=== PATIENT | male | born 1960 | race Caucasian/White ===

== ENCOUNTER 2024-03-06 08:31 | Inpatient (IN) | payer MEDICARE, MEDICAID, SELFPAY ==
--- NOTE | ~2024-03-06 | CT_ITS ---
EXAMINATION: CT head/brain wo IV con CLINICAL INFORMATION: Patient with known vestibular schwannoma. MRI of brain on 01/10/2023 showed 3.4 x 3.4 x 2.5 cm heterogenous lesion within the left CP angle extending to the right IAC. COMPARISON: None. At the time of dictation, the referenced MRI brain is unavailable for comparison. TECHNIQUE: Contiguous axial imaging was performed from the skull base to vertex without intravenous contrast. This CT examination was performed using dose optimization techniques as appropriate, variously including the following: * Automated exposure control * Adjustment of mA and/or kV according to patient size (this includes techniques or standardized protocols for targeted exams where dose is matched to indication/reason for exam; i.e. extremities or head) * Use of iterative reconstruction technique DLP: 719 mGy-cm. FINDINGS: There is a heterogeneous density 3.7 x 3.4 x 2.8 cm lesion in the right cerebellopontine angle (series #2 axial image 21 and coronal image 118). There is surrounding edema with mass effect on the [place] and partial effacement of fourth ventricle. There is no evidence of acute intracranial hemorrhage or territorial infarction. Garcia to white matter differentiation is well preserved. No midline shift is seen. No extra-axial fluid collections are identified. No hydrocephalus. No significant volume loss. There is no abnormal attenuation within the brain parenchyma. The cerebellar tonsils are well positioned. No acute osseous or soft tissue abnormality. Visualized portions of the orbits are unremarkable. The mastoid air cells and visualized portions of the paranasal sinuses are well aerated. CT/CT head/brain wo IV con IMPRESSION: 1. There is a heterogeneous density 3.7 cm lesion in the right cerebellopontine angle with surrounding edema resulting in mass effect on the [place]er[place] and partial effacement of fourth ventricle. 2. No acute intracranial hemorrhage or territorial infarction.
--- NOTE | ~2024-03-06 | MR_ITS ---
EXAMINATION: MR BRAIN WITH AND WITHOUT CONTRAST CLINICAL INFORMATION: Cerebellopontine angle tumor, evaluate edema/compression COMPARISON: CT head 03/06/2024, outside MR brain 01/10/2023 TECHNIQUE: MRI of the brain was obtained using routine sequences before and following administration of intravenous contrast. A total of 7 mL of Gadavist was administered intravenously. FINDINGS: Multiple sequences are motion degraded. There is a mixed solid and cystic mass with internal susceptibility artifact located along the right cerebellopontine angle measuring up to 4.2 x 4.4 x 3.0 cm. This lesion extends into the right internal auditory canal with mild widening of the porus acousticus. There is locoregional mass effect with compression of the right cerebellar hemisphere, right brachium pontis, and right [place]er[place]. Underlying edema in the right brachium pontis and right cerebellar hemisphere is noted. There is distortion of the fourth ventricle without evidence of acute hydrocephalus. This lesion effaces the cisternal segment of the right trigeminal nerve and is in close approximation to the right vertebral artery and tortuous left vertebral artery which course along its undersurface. Overall, this appears comparable in size to the prior outside examination when allowing for differences in technique. No acute infarction. No midline shift. Generalized cerebral volume loss with associated ventricular and sulcal prominence. Intracranial flow voids are preserved. Scattered periventricular and subcortical T2/FLAIR hyperintense foci are nonspecific but likely represent chronic microvascular ischemic change. No additional areas of abnormal enhancement are seen within the constraint of motion degradation. The paranasal sinuses and mastoid air cells are well-aerated. No expansile or destructive osseous lesion. Degenerative changes of the temporomandibular joints. MR/MR head/brain wo/w con IMPRESSION: Large solid and cystic mass centered along the right cerebellopontine angle likely represents a vestibular schwannoma. Associated mass effect, as described above, with edema in the right brachium pontis and right cerebellar hemisphere.
--- NOTE | ~2024-03-06 | XR_ITS ---
EXAMINATION: XR chest 1V CLINICAL INFORMATION: Reason for Exam alter mentation COMPARISON: None TECHNIQUE: Single portable frontal view. Tubes and lines: None Lungs and pleura: Mild diffuse interstitial opacification might be interstitial pneumonitis or interstitial lung disease. No large effusions, right costophrenic angle is excluded from the [id number]. Left costophrenic angle is sharp. Heart and mediastinum: The mediastinum is within normal limits.. Bones/soft tissue: Skeletal structures included are normal for patient's age. XR/XR chest 1V IMPRESSION: * Mild diffuse interstitial opacification might be mild interstitial pneumonitis or interstitial lung disease. * No large effusions.
--- NOTE | 2024-03-06 08:41 | ECG_ITS ---
Test Reason : MENTAL STATUS CHANGE Blood Pressure : / mmHG Vent. Rate : 078 BPM Atrial Rate : 078 BPM P-R Int : 180 ms QRS Dur : 084 ms QT Int : 364 ms P-R-T Axes : 060 073 064 degrees QTc Int : 414 ms Normal sinus rhythm Normal ECG No previous ECGs available Referred By: Daniel Stack Electronically Signed By:ISABELLA CANAS
[2024-03-06 08:42] VITALS: BP 111/68; BP 99/56; PULSE 68; PULSE 72; RESP 15; TEMP 36.3; BMI 23.7
--- NOTE | 2024-03-06 08:44 | ED.GENADULT ---
HPI - General Adult General Chief complaint: Recheck/Abnormal Lab/Rx Stated complaint: AMS THIS AM,@BASELINE PER EMS Time Seen by Provider: 03/06/24 08:40 Source: family ( Caregiver) and EMS Mode of arrival: EMS Limitations: other ( cognitive disorder) History of Present Illness ED Provider: DR. Stack HPI narrative: Prieto is a 63-year-old male with past medical history significant for intellectual disability and cognitive disorder came in with his caregiver for evaluation and concern of change mental status. 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 In the emergency department patient is awake was intact neuro exam with out weakness or numbness. Blood sugar in the emergency department is 118. Related Data Allergies Allergy/AdvReac Type Severity Reaction Status Date / Time No Known Allergies Allergy Verified 03/06/24 08:57 Review of Systems Review of Systems: Yes Unobtainable due to mental status ( due to cognitive disorder) PMFSH Social History Social History Advance Directives: No Advance Directives Information Provided: No Physical Exam ED Vital Signs: Vital Signs - 24 hr 03/06/24 08:42 03/06/24 10:00 Temperature 97.4 F 97.8 F Pulse Rate 68 69 Respiratory Rate 15 17 Blood Pressure 99/56 L 111/70 Pulse Oximetry 96 Oxygen Delivery Method Room Air Room Air BMI result Body Mass Index 23.7 Vital signs have been reviewed and appear to be correct. Blood pressure elevated. Heart rate normal. Respiratory rate normal. Temperature normal. Oxygen saturation normal. Appearance: Alert. inter acting with staff appropriately,Oriented X2 (person and place which is normal for the patient ). No acute distress. Head: Normal external exam. Normocephalic. Atraumatic. No Freitas signs noted. No raccoon eyes noted Eyes: PERRLA. EOMI. Conjunctiva and sclera normal. Eyelids normal. ENT: TM's Normal. Pharynx normal. Uvula midline. Moist mucous membranes. No trismus noted. No drooling noted. No muffled voice noted. Neck: Normal inspection. Neck supple. FROM. No adenopathy. Thyroid Normal. No meningeal signs. No neck mass noted. CVS: Normal heart rate and rhythm. Heart sound normal. No murmurs noted. Pulses normal throughout. Respiratory: No respiratory distress. Painless inspiration. Breath sounds normal. No wheezes/rales/rhonchi noted. Chest nontender. No accessory muscle usage noted or decreased air movement noted. Abdomen: Soft and nontender. Bowel sounds normal in all 4 quadrants. No distention noted. No organomegaly noted. No visible injury noted. Back: No CVA tenderness. Full range of motion noted. Skin: Skin warm and dry. Normal skin color. Normal skin turgor. No rashes/lesions/lacerations noted. Extremities: No lower extremity edema. Extremities exhibit normal range of motion. Extremities nontender. Neuro: Cranial nerve exam: II-XII are grossly intact No motor deficit. No sensory deficit. Reflexes normal. Course Reevaluation(s) Reevaluation #1: 63-year-old male came in after had 1 syncopal episode at home witnessed by his caregiver, patient will need to be monitored in the hospital for syncopal episode. Time: 11:10 Medications Administered Discontinued Medications Generic Name Dose Route Start Last Admin Trade Name Freq PRN Reason Stop Dose Admin Sodium Chloride 1,000 mls @ 999 mls/hr 03/06/24 08:40 03/06/24 09:09 Ns IV 03/06/24 09:40 999 mls/hr .Q1H1M ONE Administration Medical Decision Making Differential Diagnosis Differential Diagnoses: The differential diagnosis associated with the presentation includes ( Dehydration, electrolyte derangement, ACS, dysrhythmia, severe anemia, pneumonia, pneumothorax Upper respiratory viral infections.) Admission/Observation Consideration of admission/observation: Escalation of care including admission/observation considered Lab Data MDM Lab Attestation statement: I reviewed the patient's lab results. 03/06/24 09:06 03/06/24 09:06 Labs: Lab Results 03/06/24 03/06/24 Range/Units 08:44 09:06 WBC 10.1 (4.8-10.8) X10*3/uL RBC 4.23 L (4.60-5.80) X10*6/uL Hgb 13.9 L (14.0-18.0) g/dl Hct 40.5 L (42.0-52.0) % MCV 95.7 (80.0-98.0) fL MCH 32.9 (27.0-33.0) pg MCHC 34.3 (31.0-36.0) g/dl RDW 13.2 (11.0-16.0) % Plt Count 198 (160-400) X10*3/uL MPV 8.5 L (9.4-12.4) fL Immature Gran % (Auto) 1.2 H (0.0-0.4) % Neut % (Auto) 86.5 H (45-73) % Lymph % (Auto) 7.0 L (20-40) % [place] % (Auto) 4.0 (2-11) % Eos % (Auto) 1.1 (0-4) % Baso % (Auto) 0.2 (0-2) % Lymph # (Auto) 0.7 L (1.2-4.9) X10*3/uL [place] # (Auto) 0.4 (0.1-1.2) X10*3/uL Eos # (Auto) 0.1 (0.0-0.4) X10*3/uL Baso # (Auto) 0.0 (0.0-0.2) X10*3/uL Abs Immat Gran (auto) 0.12 H (0.00-0.03) X10*3/uL Absolute Neuts (auto) 8.7 H (2.0-8.3) x10*3/uL Absolute Nucleated RBC 0.000 (0.0-0.012) X10*3/uL Nucleated RBC % (auto) 0.0 (0.0-0.2) /100WBC Sodium 140 (135-145) mmol/L Potassium 4.1 (3.3-5.1) mmol/L Chloride 105 (96-108) mmol/L Carbon Dioxide 28 (22-29) mmol/L Anion Gap 11 L (12-20) BUN 16 (9-16) mg/dL Creatinine 0.79 (0.5-1.4) mg/dL Estim Creat Clear Calc 93.7 Estimated GFR > 60 POC Glucose 118 H (60-115) mg/dL Random Glucose 125 H (60-115) mg/dL Calcium 9.5 (8.4-10.2) mg/dL Total Bilirubin 1.6 H (0.0-1.0) mg/dL Direct Bilirubin 0.4 (0.0-0.5) mg/dL AST 27 (5-37) U/L ALT 29 (0-40) U/L Alkaline Phosphatase 95 (39-117) U/L Troponin I High Sens < 2.7 (<3.5-35.0) ng/L Total Protein 7.1 (6.5-8.0) g/dL Albumin 3.7 (3.5-5.0) g/dL Lipase 24 (8-78) U/L Influenza Type A (PCR) NEGATIVE (Negative) Influenza Type B (PCR) NEGATIVE (Negative) RSV RNA Qual (PCR) NEGATIVE (Negative) SARS-CoV-2 RNA (RT-PCR) NEGATIVE (Negative) Independent Interpretation I performed an independent interpretation of an: Plain X-Ray ( chest:* Mild diffuse interstitial opacification might be mild interstitial pneumonitis or interstitial lung disease. ) Radiology Impression Discussion of test interpretation with radiology: I have reviewed the radiologist's reading. Discharge Plan Discharge Clinical Impression: Syncope and collapse Patient Disposition: Admitted As Inpatient Print Language: Mohawk
[2024-03-06 08:48] LABS: Glucose, Whole Blood 118 mg/dL (60-115)
[2024-03-06] MEDS: 0.9 % Sodium Chloride 1,000 ML 999 ML IV (09:09)
[2024-03-06 09:11] LABS: MANUAL DIFF FLAG NO
[2024-03-06 09:12] LABS: Basophils Percent Auto 0.2 % (0-2); Eosinophils Absolute Auto 0.1 X10*3/uL (0.0-0.4); Eosinophils Percent Auto 1.1 % (0-4); Hematocrit 40.5 % (42.0-52.0); Hemoglobin 13.9 g/dl (14.0-18.0); Imm Gran Abs Auto 0.12 X10*3/uL (0.00-0.03); Imm Gran Pct Auto 1.2 % (0.0-0.4); Lymphocytes Absolute Auto 0.7 X10*3/uL (1.2-4.9); Mean Corpuscular HGB Conc 34.3 g/dl (31.0-36.0); Mean Corpuscular Hemoglobin 32.9 pg (27.0-33.0); Mean Corpuscular Volume 95.7 fL (80.0-98.0); Mean Platelet Volume 8.5 fL (9.4-12.4); Monocytes Absolute Auto 0.4 X10*3/uL (0.1-1.2); Neutrophils Absolute Auto 8.7 x10*3/uL (2.0-8.3); Neutrophils Percent Auto 86.5 % (45-73); Platelet Count 198 X10*3/uL (160-400); Red Blood Count 4.23 X10*6/uL (4.60-5.80); Red Cell Distribution Width 13.2 % (11.0-16.0); White Blood Count 10.1 X10*3/uL (4.8-10.8)
[2024-03-06 09:33] LABS: Alanine Aminotransferase 29 U/L (0-40); Albumin Level 3.7 g/dL (3.5-5.0); Alkaline Phosphatase 95 U/L (39-117); Anion Gap 11 (12-20); Aspartate Amino Transferase 27 U/L (5-37); Bilirubin Direct 0.4 mg/dL (0.0-0.5); Bilirubin Total 1.6 mg/dL (0.0-1.0); Blood Urea Nitrogen 16 mg/dL (9-16); Calcium 9.5 mg/dL (8.4-10.2); Carbon Dioxide 28 mmol/L (22-29); Chloride 105 mmol/L (96-108); Creatinine Clr Calc Pharmacy 93.7; Estimated Glomerular Filt Rate > 60; Glucose Random 125 mg/dL (60-115); Lipase 24 U/L (8-78); Potassium 4.1 mmol/L (3.3-5.1); Sodium 140 mmol/L (135-145); Total Protein 7.1 g/dL (6.5-8.0)
[2024-03-06 09:48] LABS: Troponin-I High Sensitivity < 2.7 ng/L (<3.5-35.0)
[2024-03-06 09:49] LABS: Influenza A PCR NEGATIVE (Negative); Influenza B PCR NEGATIVE (Negative); Resp Syncy Virus RNA Qual PCR NEGATIVE (Negative); SARS COV2 PCR INHOUSE NEGATIVE (Negative)
[2024-03-06 10:00] VITALS: BP 111/70; PULSE 69; RESP 17; TEMP 36.6; O2SAT 96
--- NOTE | 2024-03-06 12:56 | P.HPHOSP_ITS ---
History of Present Illness Date of Service: 03/06/24 Attending physician on admission: Kathe Yates Chief Complaint: Syncopal episode Addendum: Spoke with patient's sister who noted patient had a follow-up appointment with Neurology from [facility] after MRI last year. Neurology said no indication for surgery given size of tumor. Sister also noted patient had been more unsteady on his feet with a history of recent falls. Will get PT evaluation. CT of head/brain came back showing similar sized heterogeneous density 3.7 cm lesion with mass effect on america and partial effacement of 4th ventricle with surrounding edema. Size and mass effect similar to MRI, though edema appears new. Will start on dexamethasone 4 mg IV b.i.d. for edema. Pt is a 63-year-old male with a PMH significant for anoxic brain injury as a child, intellectual disability, cognitive disorder, diet-controlled type 2 diabetes, and vestibular schwannoma?who presents to the ED for evaluation of brief unresponsive episode at home. Pt has been living with caregivers since 2016 who report was in his normal state of health this morning when the family was preparing to go out to have breakfast. Pt went into his room to get his shoes when the family's daughter heard a noise like someone falling. Went in to check on the pt and found him standing up and holding on to the door jam. Pt was awake with eyes open, though not responsive to questions or following commands. Family moved pt to the couch where he rested until he soon became responsive and appeared back to baseline without any acute medical complaints. Total episode lasted for around 2-3 minutes. No tonic-clonic type movements noted. No LOC or witnessed fall. No facial droop or hemiparesis. Patient did not complain of headache or acute vision changes. No nausea, vomiting, diarrhea, or abdominal pain. Denies chest pain/pressure, palpitations. Patient has chronic cough since being diagnosed with rheumatoid arthritis 3 years ago, currently at baseline. Patient's family state patient has not had any recent illnesses. No known history of seizures. Reports has been eating and drinking normally. However, caregivers report patient has been declining in the past year especially with worsening imbalance when walking and steadily declining weight. Of note, family report measured patient's blood sugar at 52 after episode, though EMS reported it as 151 and was 118 in the ED. In the ED pt with initially soft BP of 99/56, vitals otherwise WNL. Labs were significant for bilirubin of 1.6, otherwise grossly unremarkable. No leukocytosis. Stable H&H. No significant electrolyte abnormalities. Renal and hepatic function WNL. Blood glucose 118. Troponin negative. Tested negative for flu, RSV, COVID. CXR showed mild diffuse interstitial opacifications that might be mild interstitial pneumonitis or interstitial lung disease. EKG demonstrated normal sinus rhythm without evidence of significant ST elevations or depressions. Pt was treated with 1L IVF. Pt will be admitted to the hospital under observation for further evaluation of episode of unresponsiveness at home concerning for seizure vs worsening vestibular schwannoma. Review of Systems 2 Review of Systems: Episode of unresponsiveness lasting 2-3 minutes No loss of consciousness No witnessed fall Denies tonic-clonic type movements No hemiparesis or facial droop Denies chest pain/pressure, palpitations No shortness a breath or difficulty breathing [facility] Medical History (Updated 03/06/24 @ 19:13 by GRACE Hill) Vestibular schwannoma Cognitive impairment Anoxic brain injury Social History Alcohol intake: never Smoked in Last 30 Days: No Use of substances other than those prescribed or required for medical reasons: No Advance Directives: No Advance Directives Information Provided: No Meds Allergies Allergy/AdvReac Type Severity Reaction Status Date / Time No Known Allergies Allergy Verified 03/06/24 08:57 Home Medications ?Medication ?Instructions ?Recorded ?Confirmed ?Last Taken ?Type aspirin 81 mg tablet,delayed 81 mg PO DAILY 03/06/24 03/06/24 03/05/24 20:00 History release cholecalciferol (vitamin D3) 125 125 mcg PO DAILY 03/06/24 03/06/24 03/06/24 08:00 History mcg (5,000 unit) tablet (Vitamin 125 mcg D3) folic acid 1 mg tablet 1 mg PO DAILY 03/06/24 03/06/24 03/05/24 20:00 History 1 mg hydroxychloroquine 200 mg tablet 200 mg PO BID 03/06/24 03/06/24 03/06/24 08:00 History 200 mg methotrexate sodium 2.5 mg tablet 15 mg PO SA@199903/06/24 03/06/24 03/05/24 20:00 History 15 mg multivitamin 1 tab PO DAILY 03/06/24 03/06/24 Unknown History polyethylene glycol 3350 17 gram 17 g PO DAILY 03/06/24 03/06/24 03/06/24 History oral powder packet (Miralax) Physical Exam 2 Vital Signs and Narrative: Vital Signs: Last Vital Signs Temp 97.8 F 03/06/24 10:00 Pulse 69 03/06/24 10:00 Resp 17 03/06/24 10:00 BP 111/70 03/06/24 10:00 Pulse Ox 96 03/06/24 10:00 O2 Del Method Room Air 03/06/24 10:00 BMI result Body Mass Index 23.7 Results Labs 03/06/24 09:06 03/06/24 09:06 Labs: Laboratory Results - last 24 hr 03/06/24 03/06/24 08:44 09:06 MCV 95.7 MCH 32.9 MCHC 34.3 RDW 13.2 Plt Count 198 MPV 8.5 L Immature Gran % (Auto) 1.2 H Neut % (Auto) 86.5 H Lymph % (Auto) 7.0 L [place] % (Auto) 4.0 Eos % (Auto) 1.1 Baso % (Auto) 0.2 Lymph # (Auto) 0.7 L [place] # (Auto) 0.4 Eos # (Auto) 0.1 Baso # (Auto) 0.0 Abs Immat Gran (auto) 0.12 H Absolute Neuts (auto) 8.7 H Absolute Nucleated RBC 0.000 Nucleated RBC % (auto) 0.0 Anion Gap 11 L Estim Creat Clear Calc 93.7 Estimated GFR > 60 POC Glucose 118 H Random Glucose 125 H Calcium 9.5 Total Bilirubin 1.6 H Direct Bilirubin 0.4 AST 27 ALT 29 Alkaline Phosphatase 95 Troponin I High Sens < 2.7 Total Protein 7.1 Albumin 3.7 Lipase 24 Influenza Type A (PCR) NEGATIVE Influenza Type B (PCR) NEGATIVE RSV RNA Qual (PCR) NEGATIVE SARS-CoV-2 RNA (RT-PCR) NEGATIVE Imaging Radiologist's Impressions: Impressions Chest X-Ray 03/06/24 09:32 IMPRESSION: * Mild diffuse interstitial opacification might be mild interstitial pneumonitis or interstitial lung disease. * No large effusions. Assessment and Plan (1) Unresponsive episode: Status: Acute Plan Pt is a 63-year-old male with a PMH significant for anoxic brain injury as a child, intellectual disability, cognitive disorder, diet-controlled type 2 diabetes, and vestibular schwannoma?who presents to the ED for evaluation of brief unresponsive episode at home. Pt will be admitted to the hospital under observation for further evaluation of episode of unresponsiveness at home concerning for seizure vs worsening vestibular schwannoma. Episode of unresponsiveness Pt with 2-3 minute long episode of unresponsiveness while standing and holding onto doorway No LOC or witnessed fall Unclear etiology: most likely seizure vs worsening vestibular schwannoma No obvious signs of infection, glucose 118, no significant electrolyte abnormalities BP initially soft at 99/56, will check orthostatics Will check CT of head EEG Neurology consult Monitor on telemetry Abnormal CXR CXR showing mild diffuse interstitial opacification suggestive of mild interstitial pneumonitis or interstitial lung disease Likely secondary to RA Pt with chronic cough x3 years when diagnosed with RA, at baseline No indication for additional pulmonary workup at this time Vestibular schwannoma MRI of brain on 01/10/2023 showed 3.4 x 3.4 x 2.5 cm heterogenous lesion within the left CP angle extending to the right IAC Patient with imbalance when walking, worsening in the past year Does not follow with Neurology See pictures of full MRI report below Rheumatoid arthritis Continue hydroxychloroquine Full Code Attending:?Dr. Yates DVT Prophylaxis: Lovenox Patient will be admitted to the hospital under observation for evaluation of episode of unresponsiveness of unclear etiology: Concerning for seizure versus worsening vestibular schwannoma. Quality Stroke Does the patient have a stroke diagnosis?: No VTE Prior VTE?: No VTE Risk Level:: Medical - moderate - high VTE Device Contraindication: Treatment Not Indicated VTE Drug Contraindication: N/A - Med Ordered
--- NOTE | 2024-03-06 13:18 | PHA.MEDREC ---
Pharmacy Consult ? Medication Reconciliation Pharmacy has completed the medication reconciliation. Patient had a med list from [facility] via [facility].
[2024-03-06 14:57] LABS: Glucose, Whole Blood 121 mg/dL (60-115)
[2024-03-06 15:24] VITALS: BP 101/53; PULSE 83; RESP 14; TEMP 36.4; O2SAT 98
[2024-03-06 15:38] LABS: Appearance Urine Clear; Color Urine Yellow; Glucose Urine UA Negative (Negative); Leukocyte Esterase Urine Negative (Negative); Nitrite Urine Negative (Negative); Urine Blood Negative (Negative); Urine Ketones 40 mg/dL (Negative); Urine Protein Negative (Neg-Trace)
--- NOTE | 2024-03-06 16:26 | MHC.EDTECH ---
Per family, patient is wearing a brief only because he can not wipe himself correctly. He will need help cleaning himself after a BM.
[2024-03-06 20:02] VITALS: BP 101/54; PULSE 85; RESP 19; TEMP 36.7; O2SAT 97
[2024-03-06] MEDS: dexAMETHasone sod phosphate 4 MG/ML VIAL IVPUSH (22:20)
[2024-03-06] MEDS: Enoxaparin Sodium 40 MG/0.4 ML SYRINGE SUBCUT (22:20)
[2024-03-06] MEDS: Hydroxychloroquine Sulfate 200 MG TABLET PO (22:21)
[2024-03-06 23:14] VITALS: BP 110/66; PULSE 78; RESP 20; O2SAT 96
[2024-03-07] VITALS (7 sets, daily range): BP systolic 109–130; BP diastolic 60–80; PULSE 84–102; RESP 15–20; TEMP 36.3–37; O2SAT 96–98
--- NOTE | 2024-03-07 | EEG_ITS ---
This is a 16-channel EEG with an EKG lead. The patient is reported awake and confused during the tracing. Background EEG rhythm is 10 to 12 hertz 5 to 70 microvolt posteriorly and lower amplitude fast anteriorly. Intermittently sharply contoured discharges are noted in the right hemispheric areas. Cardiac lead did not reveal any significant abnormality. Photic stimulation was unremarkable. Hyperventilation was not performed. IMPRESSION: Mildly abnormal EEG suggestive of right hemispheric irritability. MD RACHELLE Arvizu/BRIGITTE / [id number]
[2024-03-07] MEDS: 0.9 % Sodium Chloride Flush 3 ML SYRINGE IVFLUSH ×3 (00:15→21:11)
[2024-03-07] MEDS: Multivitamin TABLET 1 TAB PO (09:31)
[2024-03-07] MEDS: Folic Acid 1 MG TABLET PO (09:31)
[2024-03-07] MEDS: Hydroxychloroquine Sulfate 200 MG TABLET PO ×2 (09:31→21:11)
[2024-03-07] MEDS: Aspirin Enteric Coated 81 MG TABLET.DR PO (09:31)
[2024-03-07] MEDS: Cholecalciferol (Vitamin D3) 25 MCG TABLET 125 MCG PO (09:31)
[2024-03-07] MEDS: polyethylene glycoL 3350 17 GM POWD.PACK PO (09:31)
[2024-03-07] MEDS: dexAMETHasone sod phosphate 4 MG/ML VIAL IVPUSH ×2 (09:34→21:09)
--- NOTE | 2024-03-07 09:37 | PC.NURSE ---
patient sitting up in recliner, family at bedside, patient is awake and alert., VSS, respirations equal and unlabored, skin dry and intact. patient IV patent, medicated per MAR. patient able to make needs known. takes meds whole with water
--- NOTE | 2024-03-07 10:07 | PC.NURSE ---
patient ambulates with steady gait with one assist to the bathroom
--- NOTE | 2024-03-07 11:51 | P.CNNE_ITS ---
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 It was not clear if he passed out or not. There was no witnessed. He was unable to provide any meaningful history. He was not complaining of any headache and did not have nausea vomiting or any change in his vision or strength. Review of Systems 2 Review of Systems: No recent cold or flu-like illness [facility] Past Medical History Medical History (Updated 03/06/24 @ 19:13 by GRACE Hill) Vestibular schwannoma Cognitive impairment Anoxic brain injury Social History Social History Alcohol intake: never Smoked in Last 30 Days: No Use of substances other than those prescribed or required for medical reasons: No Advance Directives: No Advance Directives Information Provided: No Meds Allergies Allergy/AdvReac Type Severity Reaction Status Date / Time No Known Allergies Allergy Verified 03/06/24 08:57 Active Medications: Current Medications Acetaminophen (Acetaminophen 325 Mg Tablet) 650 mg PO Q6H PRN PRN Reason: Pain, Mild (Pain Scale 1-3), fever or headache Aspirin (Aspirin Enteric Coated 81 Mg Tablet.Dr) 81 mg PO DAILY [facility] Last Admin: 03/07/24 09:31 Dose: 81 mg Benzonatate (Benzonatate 100 Mg Capsule) 100 mg PO TID PRN PRN Reason: Cough Calcium Carbonate (Calcium Carbonate 750 Mg Tab.Chew) 750 mg PO Q4H PRN PRN Reason: Heartburn Dexamethasone Sodium Phosphate (Dexamethasone Sod Phosphate 4 Mg/Ml Vial) 4 mg IVPUSH BID [facility] Last Admin: 03/07/24 09:34 Dose: 4 mg Enoxaparin Sodium (Enoxaparin Sodium 40 Mg/0.4 Ml Syringe) 40 mg SUBCUT Q24H [facility] Last Admin: 03/06/24 22:20 Dose: 40 mg Folic Acid (Folic Acid 1 Mg Tablet) 1 mg PO DAILY [facility] Last Admin: 03/07/24 09:31 Dose: 1 mg Hydroxychloroquine Sulfate (Hydroxychloroquine Sulfate 200 Mg Tablet) 200 mg PO BID [facility] Last Admin: 03/07/24 09:31 Dose: 200 mg Magnesium Hydroxide (Milk Of Magnesia 30 Ml Oral.Susp) 30 ml PO DAILY PRN PRN Reason: Constipation Melatonin (Melatonin 3 Mg Tablet) 6 mg PO BEDTIME PRN PRN Reason: Insomnia Multivitamins/Vitamin C (Multivitamin Tablet) 1 tab PO DAILY [facility] Last Admin: 03/07/24 09:31 Dose: 1 tab Ondansetron HCl (Ondansetron Hcl 4 Mg/2 Ml Vial) 4 mg IVPUSH Q8H PRN PRN Reason: Nausea and Vomiting Polyethylene Glycol (Polyethylene Glycol 3350 17 Gm Powd.Pack) 17 gm PO DAILY [facility] Last Admin: 03/07/24 09:31 Dose: 17 gm Sodium Chloride (0.9 % Sodium Chloride Flush 3 Ml Syringe) 3 ml IVFLUSH QSHIFT [facility] Last Admin: 03/07/24 07:40 Dose: Not Given Vitamin D (Cholecalciferol (Vitamin D3) 25 Mcg Tablet) 125 mcg PO DAILY [facility] Last Admin: 03/07/24 09:31 Dose: 125 mcg Home Medications ?Medication ?Instructions ?Recorded ?Confirmed ?Last Taken ?Type aspirin 81 mg tablet,delayed 81 mg PO DAILY 03/06/24 03/06/24 03/05/24 20:00 History release cholecalciferol (vitamin D3) 125 125 mcg PO DAILY 03/06/24 03/06/24 03/06/24 08:00 History mcg (5,000 unit) tablet (Vitamin 125 mcg D3) folic acid 1 mg tablet 1 mg PO DAILY 03/06/24 03/06/24 03/05/24 20:00 History 1 mg hydroxychloroquine 200 mg tablet 200 mg PO BID 03/06/24 03/06/24 03/06/24 08:00 History 200 mg methotrexate sodium 2.5 mg tablet 15 mg PO SA@2000 03/06/24 03/06/24 03/05/24 20:00 History 15 mg multivitamin 1 tab PO DAILY 03/06/24 03/06/24 Unknown History polyethylene glycol 3350 17 gram 17 g PO DAILY 03/06/24 03/06/24 03/06/24 History oral powder packet (Miralax) Physical Exam 2 Vital Signs: Vital Signs: Last Vital Signs Temp 97.5 F 03/07/24 07:28 Pulse 85 03/07/24 07:28 Resp 16 03/07/24 07:28 BP 109/61 03/07/24 07:28 Pulse Ox 97 03/07/24 07:28 O2 Del Method Room Air 03/07/24 07:28 BMI result Body Mass Index 23.7 Neuro: Other: Alert and awake with decreased spontaneity and fluency of speech. He was able to say words and name his sister. Facial expressions were routine though somewhat exaggerated. There was no focal weakness. Results Labs 03/06/24 09:06 03/06/24 09:06 Labs: Urine 03/06/24 Range/Units 15:27 Urine Color Yellow Urine Appearance Clear Urine pH 7.0 (5.0-9.0) Ur Specific [place] 1.020 (1.005-1.025) Urine Protein Negative (Neg-Trace) mg/dL Urine Glucose (UA) Negative (Negative) mg/dL Noncontrast head CT revealed a moderately sized right cerebellar pontine angle mass. 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 He had an episode of falling but it is not clear if he passed out or not. He was not able to provide meaningful history and a fall from loss of balance, which could be cause by or related to cerebellopontine angle mass, or seizure were possibility. An EEG is recommended and if that is okay, he should consider seeing neurosurgeon again for proper evaluation at the mass seems of reasonable size with mass effect on cerebellum. If MRI of brain not done recently, it is recommended with and without contrast to define the mass and to see the extent of edema or pressure, which might need medical treatment. Procedures Date of Service Date of Service: 03/07/24
--- NOTE | 2024-03-07 12:38 | HO.PM.IMPN ---
Subjective Subjective Date of Service: 03/07/24 Interval History: no further episodes of staring per pt's sister pt unable to give history personally Review of Systems Review of Systems: Yes Unobtainable due to mental status Physical Exam Vital Signs: Vital Signs: Last Vital Signs Temp 97.7 F 03/07/24 12:13 Pulse 85 03/07/24 12:13 Resp 16 03/07/24 12:13 BP 110/64 03/07/24 12:13 Pulse Ox 96 03/07/24 12:13 O2 Del Method Room Air 03/07/24 12:13 BMI result Body Mass Index 23.7 Gen: in no acute distress HEENT: sclera anicteric, moist mucus membranes Neck: supple Lungs: clear to auscultation bilaterally Heart: regular rate and rhythm, no murmurs Abd: soft, non-tender, non-distended Ext: no edema Skin: warm/well-perfused Neuro: alert, able to give his name and follow simple commands, no focal weakness Psych: unclear insight Objective Data Active Medications Acetaminophen (Acetaminophen 325 Mg Tablet) 650 mg PO Q6H PRN PRN Reason: Pain, Mild (Pain Scale 1-3), fever or headache Aspirin (Aspirin Enteric Coated 81 Mg Tablet.) 81 mg PO DAILY [facility] Last Admin: 03/07/24 09:31 Dose: 81 mg Documented By: ERIKA Benzonatate (Benzonatate 100 Mg Capsule) 100 mg PO TID PRN PRN Reason: Cough Calcium Carbonate (Calcium Carbonate 750 Mg Tab.Chew) 750 mg PO Q4H PRN PRN Reason: Heartburn Dexamethasone Sodium Phosphate (Dexamethasone Sod Phosphate 4 Mg/Ml Vial) 4 mg IVPUSH BID [facility] Last Admin: 03/07/24 09:34 Dose: 4 mg Documented By: ERIKA Enoxaparin Sodium (Enoxaparin Sodium 40 Mg/0.4 Ml Syringe) 40 mg SUBCUT Q24H [facility] Last Admin: 03/06/24 22:20 Dose: 40 mg Documented By: ARIAN Folic Acid (Folic Acid 1 Mg Tablet) 1 mg PO DAILY [facility] Last Admin: 03/07/24 09:31 Dose: 1 mg Documented By: ERIKA Hydroxychloroquine Sulfate (Hydroxychloroquine Sulfate 200 Mg Tablet) 200 mg PO BID [facility] Last Admin: 07/01/24 09:31 Dose: 200 mg Documented By: ERIKA Magnesium Hydroxide (Milk Of Magnesia 30 Ml Oral.Susp) 30 ml PO DAILY PRN PRN Reason: Constipation Melatonin (Melatonin 3 Mg Tablet) 6 mg PO BEDTIME PRN PRN Reason: Insomnia Multivitamins/Vitamin C (Multivitamin Tablet) 1 tab PO DAILY [facility] Last Admin: 03/07/24 09:31 Dose: 1 tab Documented By: ERIKA Ondansetron HCl (Ondansetron Hcl 4 Mg/2 Ml Vial) 4 mg IVPUSH Q8H PRN PRN Reason: Nausea and Vomiting Polyethylene Glycol (Polyethylene Glycol 3350 17 Gm Powd.Pack) 17 gm PO DAILY [facility] Last Admin: 03/07/24 09:31 Dose: 17 gm Documented By: ERIKA Sodium Chloride (0.9 % Sodium Chloride Flush 3 Ml Syringe) 3 ml IVFLUSH QSHIFT [facility] Last Admin: 03/07/24 07:40 Dose: Not Given Documented By: ERIKA Non-Admin Reason: See Note Vitamin D (Cholecalciferol (Vitamin D3) 25 Mcg Tablet) 125 mcg PO DAILY [facility] Last Admin: 03/07/24 09:31 Dose: 125 mcg Documented By: ERIKA Labs 03/06/24 09:06 03/06/24 09:06 Labs: Laboratory Results - last 24 hr 03/06/24 03/06/24 14:53 15:27 POC Glucose 121 H Urine Color Yellow Urine Appearance Clear Urine pH 7.0 Ur Specific Darling 1.020 Urine Protein Negative Urine Glucose (UA) Negative Urine Ketones 40 Urine Blood Negative Urine Nitrite Negative Ur Leukocyte Esterase Negative ITS Impressions Chest X-Ray 03/06/24 09:32 IMPRESSION: * Mild diffuse interstitial opacification might be mild interstitial pneumonitis or interstitial lung disease. * No large effusions. Head CT 03/06/24 15:19 IMPRESSION: 1. There is a heterogeneous density 3.7 cm lesion in the right cerebellopontine angle with surrounding edema resulting in mass effect on the [place] and partial effacement of fourth ventricle. 2. No acute intracranial hemorrhage or territorial infarction. Assessment and Plan (1) Unresponsive episode: Status: Acute Assessment and Plan: d2 63yo M with chronic static encephlaopathy due to childhood anoxic brain injury, DM2, vestibular schwannoma presenting after brief unresponsive episode unresponsive episode right cerebellopontine angle mass [vestibular schwannoma] - Neuro consulted, recommended EEG + MRI brain w + w/o contrast to define extent of mass and edema - continue dexamethasone for now interstitial lung disease chronic cough - likely RA, not hypoxic, at baseline for now RA - continue hydroxychloroquine VTE ppx - LMWH dispo - PT consult pending In my clinical judgment, the patient requires continued inpatient hospitalization for the following reasons: neurologic workup Total time managing care of this patient today: 40 minutes. Quality Stroke Does the patient have a stroke diagnosis?: No VTE Prior VTE?: No VTE Risk Level:: Medical - moderate - high VTE Device Contraindication: Treatment Not Indicated VTE Drug Contraindication: N/A - Med Ordered
--- NOTE | 2024-03-07 13:01 | MHC.EDTECH ---
pt walked 1 assisted and with walker to and from bathroom with a steady gait
[2024-03-07 13:23] LABS: Glucose, Whole Blood 177 mg/dL (60-115)
[2024-03-07] MEDS: gadobutroL 7.5 ML VIAL IVPUSH (18:11)
[2024-03-07] MEDS: Acetaminophen 325 MG TABLET 650 MG PO (21:09)
[2024-03-07] MEDS: Enoxaparin Sodium 40 MG/0.4 ML SYRINGE SUBCUT (21:09)
[2024-03-08] VITALS: BP 105/62; PULSE 89; RESP 18; TEMP 36.8; O2SAT 97
[2024-03-08 03:24] VITALS: BP 105/62; PULSE 88; RESP 18; TEMP 36.6; O2SAT 96
[2024-03-08 07:37] VITALS: BP 111/72; PULSE 83; RESP 18; TEMP 36.3; O2SAT 98
[2024-03-08] MEDS: dexAMETHasone sod phosphate 4 MG/ML VIAL IVPUSH ×2 (08:32→20:32)
[2024-03-08] MEDS: 0.9 % Sodium Chloride Flush 3 ML SYRINGE IVFLUSH ×2 (08:32→17:08)
[2024-03-08] MEDS: Hydroxychloroquine Sulfate 200 MG TABLET PO ×2 (08:33→20:32)
[2024-03-08] MEDS: levETIRAcetam 250 MG TABLET PO ×2 (08:33→20:32)
[2024-03-08] MEDS: Multivitamin TABLET 1 TAB PO (08:33)
[2024-03-08] MEDS: Aspirin Enteric Coated 81 MG TABLET.DR PO (08:33)
[2024-03-08] MEDS: Cholecalciferol (Vitamin D3) 25 MCG TABLET 125 MCG PO (08:33)
[2024-03-08] MEDS: polyethylene glycoL 3350 17 GM POWD.PACK PO (08:33)
[2024-03-08] MEDS: Folic Acid 1 MG TABLET PO (08:33)
--- NOTE | 2024-03-08 08:52 | MHC.CM.PN ---
Patient has a diagnosis of Anoxic Brain Injury, Cognitive Impairment, and Intellectual Disability; CM left a detailed message for Sister/HCP/Eliana @ [phone], addressing the IMM with her (original will be mailed certified letter to Eliana and a copy has been placed on the chart). CM awaits a return call from Eliana to complete CM Initial Assessment. CM will follow.
--- NOTE | 2024-03-08 09:03 | MHC.CM.PN ---
CM spoke with Sister/HCP/Eliana. Patient lives in an Adult Foster Care program with 2 Caregivers through [facility] and he attends a Day Program at [facility] in [place]. PT is recommending home with services. Per Eliana, Patient will stay with her for a day or two at dc but referral should be made to [facility] (not a [facility]NA in [place] where Sister lives). CM has initiated and will follow for dc planning. PCP is Dr. Boaz David.
[2024-03-08 11:26] VITALS: BP 116/60; PULSE 76; RESP 20; TEMP 36.6; O2SAT 98
[2024-03-08 11:35] LABS: Glucose, Whole Blood 146 mg/dL (60-115)
--- NOTE | 2024-03-08 12:02 | P.PNIM_ITS ---
Subjective Subjective Date of Service: 03/08/24 Interval History: in good spirits; eating; no further staring episodes per sister Review of Systems Review of Systems: Yes Unobtainable due to mental status Physical Exam 2 Vital Signs: Vital Signs: Last Vital Signs Temp 97.8 F 03/08/24 11:26 Pulse 76 03/08/24 11:26 Resp 20 03/08/24 11:26 BP 116/60 03/08/24 11:26 Pulse Ox 98 03/08/24 11:26 O2 Del Method Room Air 03/08/24 11:26 BMI result Body Mass Index 23.7 Gen: in no acute distress HEENT: sclera anicteric, moist mucus membranes Neck: supple Lungs: clear to auscultation bilaterally Heart: regular rate and rhythm, no murmurs Abd: soft, non-tender, non-distended Ext: no edema Skin: warm/well-perfused Neuro: alert, able to give his name and follow simple commands, no focal weakness Psych: unclear insight Objective Data Active Medications Acetaminophen (Acetaminophen 325 Mg Tablet) 650 mg PO Q6H PRN PRN Reason: Pain, Mild (Pain Scale 1-3), fever or headache Last Admin: 03/07/24 21:09 Dose: 650 mg Documented By: KASEY Aspirin (Aspirin Enteric Coated 81 Mg Tablet.) 81 mg PO DAILY [facility] Last Admin: 03/08/24 08:33 Dose: 81 mg Documented By: MIRNA Benzonatate (Benzonatate 100 Mg Capsule) 100 mg PO TID PRN PRN Reason: Cough Calcium Carbonate (Calcium Carbonate 750 Mg Tab.Chew) 750 mg PO Q4H PRN PRN Reason: Heartburn Dexamethasone Sodium Phosphate (Dexamethasone Sod Phosphate 4 Mg/Ml Vial) 4 mg IVPUSH BID [facility] Last Admin: 03/08/24 08:32 Dose: 4 mg Documented By: MIRNA Enoxaparin Sodium (Enoxaparin Sodium 40 Mg/0.4 Ml Syringe) 40 mg SUBCUT Q24H [facility] Last Admin: 03/07/24 21:09 Dose: 40 mg Documented By: KASEY Folic Acid (Folic Acid 1 Mg Tablet) 1 mg PO DAILY [facility] Last Admin: 03/08/24 08:33 Dose: 1 mg Documented By: MIRNA Hydroxychloroquine Sulfate (Hydroxychloroquine Sulfate 200 Mg Tablet) 200 mg PO BID [facility] Last Admin: 03/08/24 08:33 Dose: 200 mg Documented By: MIRNA Levetiracetam (Levetiracetam 250 Mg Tablet) 250 mg PO BID [facility] Last Admin: 03/08/24 08:33 Dose: 250 mg Documented By: MIRNA Magnesium Hydroxide (Milk Of Magnesia 30 Ml Oral.Susp) 30 ml PO DAILY PRN PRN Reason: Constipation Melatonin (Melatonin 3 Mg Tablet) 6 mg PO BEDTIME PRN PRN Reason: Insomnia Multivitamins/Vitamin C (Multivitamin Tablet) 1 tab PO DAILY [facility] Last Admin: 03/08/24 08:33 Dose: 1 tab Documented By: MIRNA Ondansetron HCl (Ondansetron Hcl 4 Mg/2 Ml Vial) 4 mg IVPUSH Q8H PRN PRN Reason: Nausea and Vomiting Polyethylene Glycol (Polyethylene Glycol 3350 17 Gm Powd.Pack) 17 gm PO DAILY [facility] Last Admin: 03/08/24 08:33 Dose: 17 gm Documented By: MIRNA Sodium Chloride (0.9 % Sodium Chloride Flush 3 Ml Syringe) 3 ml IVFLUSH QSHIFT [facility] Last Admin: 03/08/24 08:32 Dose: 3 ml Documented By: MIRNA Vitamin D (Cholecalciferol (Vitamin D3) 25 Mcg Tablet) 125 mcg PO DAILY [facility] Last Admin: 03/08/24 08:33 Dose: 125 mcg Documented By: MIRNA Labs 03/06/24 09:06 03/06/24 09:06 Labs: Laboratory Results - last 24 hr 03/07/24 03/08/24 13:19 11:32 POC Glucose 177 H 146 H Assessment and Plan (1) Unresponsive episode: Status: Acute Assessment and Plan: d3 63yo M with chronic static encephlaopathy due to childhood anoxic brain injury, DM2, vestibular schwannoma presenting after brief unresponsive episode unresponsive episode right cerebellopontine angle mass [vestibular schwannoma] - Neuro consulted - EEG showed right hemispheric irritability; started on Keppra - MRI brain showed mass is possibly larger and has surrounding edema - will discuss with Neurology as well as pt's neurosurgeon Dr [place] [facility] - continue dexamethasone for now interstitial lung disease chronic cough - likely RA, not hypoxic, at baseline for now RA - continue hydroxychloroquine VTE ppx - LMWH dispo - PT consulted, plan home with [facility]NA In my clinical judgment, the patient requires continued inpatient hospitalization for the following reasons: neurologic workup Total time managing care of this patient today: 40 minutes. Quality Stroke Does the patient have a stroke diagnosis?: No VTE Prior VTE?: No VTE Risk Level:: Medical - moderate - high VTE Device Contraindication: Treatment Not Indicated VTE Drug Contraindication: N/A - Med Ordered
--- NOTE | 2024-03-08 13:09 | MHC.CM.PN ---
JOSETTE received a call from DDS Worker/Deepti. Per Deepti, Patient's Caregiver is retiring in May and Deepti will be working on an alternate plan for Patient. JOSETTE has faxed requested information to Deepti @ . JOSETTE will follow.
[2024-03-08 16:00] VITALS: BP 111/70; PULSE 81; RESP 20; TEMP 36.5; O2SAT 97
[2024-03-08 20:00] VITALS: BP 105/62; PULSE 79; RESP 18; TEMP 36.4; O2SAT 97
[2024-03-08] MEDS: Enoxaparin Sodium 40 MG/0.4 ML SYRINGE SUBCUT (20:32)
[2024-03-09] VITALS: BP 99/59; PULSE 75; RESP 16; TEMP 36.7; O2SAT 96
[2024-03-09] MEDS: 0.9 % Sodium Chloride Flush 3 ML SYRINGE IVFLUSH ×2 (00:05→09:49)
[2024-03-09 04:00] VITALS: BP 90/58; PULSE 72; RESP 18; TEMP 36.8; O2SAT 97
[2024-03-09 07:21] LABS: Glucose, Whole Blood 117 mg/dL (60-115)
[2024-03-09 07:47] VITALS: BP 93/58; PULSE 78; RESP 18; TEMP 36.8; O2SAT 96
[2024-03-09 08:13] VITALS: BP 102/60; PULSE 73
[2024-03-09 09:19] VITALS: BP 102/57; BP 99/63; PULSE 73; PULSE 74
[2024-03-09] MEDS: Multivitamin TABLET 1 TAB PO (09:42)
[2024-03-09] MEDS: Aspirin Enteric Coated 81 MG TABLET.DR PO (09:42)
[2024-03-09] MEDS: polyethylene glycoL 3350 17 GM POWD.PACK PO (09:43)
[2024-03-09] MEDS: Folic Acid 1 MG TABLET PO (09:43)
[2024-03-09] MEDS: Hydroxychloroquine Sulfate 200 MG TABLET PO (09:43)
[2024-03-09] MEDS: Cholecalciferol (Vitamin D3) 25 MCG TABLET 125 MCG PO (09:43)
[2024-03-09] MEDS: levETIRAcetam 250 MG TABLET PO (09:43)
--- NOTE | 2024-03-09 10:45 | MHC.CM.PN ---
CM met with Sister/HCP/Eliana at bedside.Per Eliana, Patient's other Sister/Diana is allowed to visit but should receive NO medical information regarding the Patient. CM will follow further as needed.
[2024-03-09 10:56] LABS: Glucose, Whole Blood 220 mg/dL (60-115)
[2024-03-09 11:12] VITALS: BP 119/61; PULSE 82; RESP 18; TEMP 36.8; O2SAT 98
[2024-03-09 11:15] LABS: Hemoglobin 14.3 g/dl (14.0-18.0); Mean Corpuscular HGB Conc 34.9 g/dl (31.0-36.0); Mean Corpuscular Hemoglobin 32.9 pg (27.0-33.0); Mean Corpuscular Volume 94.5 fL (80.0-98.0); Mean Platelet Volume 8.7 fL (9.4-12.4); Platelet Count 201 X10*3/uL (160-400); Red Blood Count 4.34 X10*6/uL (4.60-5.80); Red Cell Distribution Width 13.2 % (11.0-16.0); White Blood Count 10.3 X10*3/uL (4.8-10.8)
[2024-03-09 11:23] LABS: Lactic Acid 1.7 mmol/L (0.5-2.0)
[2024-03-09 11:27] LABS: Anion Gap 9 (12-20); Blood Urea Nitrogen 13 mg/dL (9-16); C Reactive Protein 0.47 mg/dL (< or = 0.50); Calcium 9.3 mg/dL (8.4-10.2); Carbon Dioxide 31 mmol/L (22-29); Chloride 101 mmol/L (96-108); Creatinine Clr Calc Pharmacy 101.5; Estimated Glomerular Filt Rate > 60; Glucose Random 196 mg/dL (60-115); Sodium 137 mmol/L (135-145)
--- NOTE | 2024-03-09 12:52 | MHC.CM.PN ---
Per MD, Patient will be medically cleared for dc to home today, with services. A referral was made to [facility], who has been notified of today's dc. Last IMM addressed on 03/08/2024.
--- NOTE | 2024-03-09 13:45 | W.MHC.F2F ---
Service Date Service Date: 03/09/24 Encounter Date of encounter: 03/09/24 Reasons for Services Signs and symptoms assessed: see PT evaluation from 03/07/24 Reason for longterm: neurological assessment, medication management and medication treatment Reason for physical therapy: home safety and mobility, therapeutic exercises, gait/transfer training, assess need for DME, ADL training and energy conservation MD Overseeing Care: Boaz David Homebound: Leaving the home is medically contraindicated at this time without the asist of a device and/or another person due th the listed conditions above and below. Reason homebound: unsteady gait / fall risk and cognitively impaired / unsafe Certification: Based on the above findings, I certify that this patient is confined to the home and needs intermittent longterm care, physical therapy and/or speech therapy, or continues to need occupational therapy. The patient is under my care, and I have initiated the establishment of the plan of care. The patient will be followed by a physician who will periodically review the plan of care. Time Spent With Patient Time: Total time managing care of this patient today ____ minutes.
--- NOTE | 2024-03-09 13:46 | P.DS_ITS ---
DS: Providers Provider Date of Service: 03/09/24 Date of admission: 03/07/24 09:00 Date of discharge: 03/09/24 Primary care physician: Boaz David MD Consults: 03/06/24 14:42 Consult to Neurology Routine Consulting Provider: [facility] Reason for consultation: ?seizure vs worsening acoustic schwannoma DS: Diagnosis Discharge Diagnosis (1) Unresponsive episode: Status: Acute (2) Seizure: Status: Acute (3) Cerebellopontine angle tumor: Status: Acute (4) Vestibular schwannoma: Status: Acute DS: Summary Hospital Course Hospital Course: From the history and physical by the admitting hospitalist, GRACE Medrano, 03/06/24: Pt is a 63-year-old male with a PMH significant for anoxic brain injury as a child, intellectual disability, cognitive disorder, diet-controlled type 2 diabetes, and vestibular schwannoma?who presents to the ED for evaluation of brief unresponsive episode at home. Pt has been living with caregivers since 2016 who report was in his normal state of health this morning when the family was preparing to go out to have breakfast. Pt went into his room to get his shoes when the family's daughter heard a noise like someone falling. Went in to check on the pt and found him standing up and holding on to the door jam. Pt was awake with eyes open, though not responsive to questions or following commands. Family moved pt to the couch where he rested until he soon became responsive and appeared back to baseline without any acute medical complaints. Total episode lasted for around 2-3 minutes. No tonic-clonic type movements noted. No LOC or witnessed fall. No facial droop or hemiparesis. Patient did not complain of headache or acute vision changes. No nausea, vomiting, diarrhea, or abdominal pain. Denies chest pain/pressure, palpitations. Patient has chronic cough since being diagnosed with rheumatoid arthritis 3 years ago, currently at baseline. Patient's family state patient has not had any recent illnesses. No known history of seizures. Reports has been eating and drinking normally. However, caregivers report patient has been declining in the past year especially with worsening imbalance when walking and steadily declining weight. Of note, family report measured patient's blood sugar at 52 after episode, though EMS reported it as 151 and was 118 in the ED. In the ED pt with initially soft BP of 99/56, vitals otherwise WNL. Labs were significant for bilirubin of 1.6, otherwise grossly unremarkable. No leukocytosis. Stable H&H. No significant electrolyte abnormalities. Renal and hepatic function WNL. Blood glucose 118. Troponin negative. Tested negative fo r flu, RSV, COVID. CXR showed mild diffuse interstitial opacifications that might be mild interstitial pneumonitis or interstitial lung disease. EKG demonstrated normal sinus rhythm without evidence of significant ST elevations or depressions. Pt was treated with 1L IVF. Pt will be admitted to the hospital under observation for further evaluation of episode of unresponsiveness at home concerning for seizure vs worsening vestibular schwannoma.... ...Addendum: Spoke with patient's sister who noted patient had a follow-up appointment with [place] [facility] [place]. Neurology said no indication for surgery given size of tumor. Sister also noted patient had been more unsteady on his feet with a history of recent falls. Will get PT evaluation. CT of head/brain came back showing similar sized heterogeneous density 3.7 cm lesion with mass effect on [place] and partial effacement of 4th ventricle with surrounding edema. Size and mass effect similar to MRI, though edema appears new. Will start on dexamethasone 4 mg IV b.i.d. for edema. 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 He was admitted to the telemetry unit with Neurology consultation. No further unresponsive episodes. EEG showed right hemispheric irritability and he was started on levetiracetam at the recommendation of the neurologist. MRI of the brain with and without contrast raised concern of growth in the mass with surrounding edema. I discussed his case with his neurosurgeon, Dr Cadet, at [facility]. He reviewed the images personally and did not think the mass had grown appreciably. He agreed with continuing levetiracetam but recommended stopping steroids. He will see the patient in clinic in 2 weeks. PT evaluated the patient and recommended VNA services and front-wheel walker. He was discharged home in the care of his sister with VNA services and a new prescription for levetiracetam and one for a walker. Time Attestation Discharge Coordination Time (in mins): 40 Quality: Safe Use of Opioids Does Pt have an Active Cancer Diagnosis on the Problem List?: No Quality: Stroke Does the patient have a stroke diagnosis?: No Physical Exam Vital Signs: Vital Signs: Last Vital Signs Temp 98.3 F 03/09/24 11:12 Pulse 82 03/09/24 11:12 Resp 18 03/09/24 11:12 BP 119/61 03/09/24 11:12 Pulse Ox 98 03/09/24 11:12 O2 Del Method Room Air 03/09/24 11:12 BMI result Body Mass Index 23.7 Gen: in no acute distress HEENT: sclera anicteric, moist mucus membranes Neck: supple Lungs: clear to auscultation bilaterally Heart: regular rate and rhythm, no murmurs Abd: soft, non-tender, non-distended Ext: no edema Skin: warm/well-perfused Neuro: alert, able to give his name and follow simple commands, no focal weakness Psych: unclear insight DS: Data Data Completed and Pending Completed studies during hospitalization [Text1]: Laboratory Results WBC 10.3 X10*3/uL (4.8-10.8) 03/09/24 11:04 RBC 4.34 X10*6/uL (4.60-5.80) L 03/09/24 11:04 Hgb 14.3 g/dl (14.0-18.0) 03/09/24 11:04 Hct 41.0 % (42.0-52.0) L 03/09/24 11:04 MCV 94.5 fL (80.0-98.0) 03/09/24 11:04 MCH 32.9 pg (27.0-33.0) 03/09/24 11:04 MCHC 34.9 g/dl (31.0-36.0) 03/09/24 11:04 RDW 13.2 % (11.0-16.0) 03/09/24 11:04 Plt Count 201 X10*3/uL (160-400) 03/09/24 11:04 MPV 8.7 fL (9.4-12.4) L 03/09/24 11:04 Immature Gran % (Auto) 1.2 % (0.0-0.4) H 03/06/24 09:06 Neut % (Auto) 86.5 % (45-73) H 03/06/24 09:06 Lymph % (Auto) 7.0 % (20-40) L 03/06/24 09:06 [place] % (Auto) 4.0 % (2-11) 03/06/24 09:06 Eos % (Auto) 1.1 % (0-4) 03/06/24 09:06 Baso % (Auto) 0.2 % (0-2) 03/06/24 09:06 Lymph # (Auto) 0.7 X10*3/uL (1.2-4.9) L 03/06/24 09:06 [place] # (Auto) 0.4 X10*3/uL (0.1-1.2) 03/06/24 09:06 Eos # (Auto) 0.1 X10*3/uL (0.0-0.4) 03/06/24 09:06 Baso # (Auto) 0.0 X10*3/uL (0.0-0.2) 03/06/24 09:06 Abs Immat Gran (auto) 0.12 X10*3/uL (0.00-0.03) H 03/06/24 09:06 Absolute Neuts (auto) 8.7 x10*3/uL (2.0-8.3) H 03/06/24 09:06 Absolute Nucleated RBC 0.000 X10*3/uL (0.0-0.012) 03/09/24 11:04 Nucleated RBC % (auto) 0.0 /100WBC (0.0-0.2) 03/09/24 11:04 Sodium 137 mmol/L (135-145) 03/09/24 11:04 Potassium 4.0 mmol/L (3.3-5.1) 03/09/24 11:04 Chloride 101 mmol/L (96-108) 03/09/24 11:04 Carbon Dioxide 31 mmol/L (22-29) H 03/09/24 11:04 Anion Gap 9 (12-20) L 03/09/24 11:04 BUN 13 mg/dL (9-16) 03/09/24 11:04 Creatinine 0.73 mg/dL (0.5-1.4) 03/09/24 11:04 Estim Creat Clear Calc 101.5 03/09/24 11:04 Estimated GFR > 60 03/09/24 11:04 POC Glucose 220 mg/dL (60-115) H 03/09/24 10:52 Random Glucose 196 mg/dL (60-115) H 03/09/24 11:04 Lactic Acid 1.7 mmol/L (0.5-2.0) 03/09/24 11:04 Calcium 9.3 mg/dL (8.4-10.2) 03/09/24 11:04 Total Bilirubin 1.6 mg/dL (0.0-1.0) H 03/06/24 09:06 Direct Bilirubin 0.4 mg/dL (0.0-0.5) 03/06/24 09:06 AST 27 U/L (5-37) 03/06/24 09:06 ALT 29 U/L (0-40) 03/06/24 09:06 Alkaline Phosphatase 95 U/L (39-117) 03/06/24 09:06 Troponin I High Sens < 2.7 ng/L (<3.5-35.0) 03/06/24 09:06 C-Reactive Protein 0.47 mg/dL (< or = 0.50) 03/09/24 11:04 Total Protein 7.1 g/dL (6.5-8.0) 03/06/24 09:06 Albumin 3.7 g/dL (3.5-5.0) 03/06/24 09:06 Lipase 24 U/L (8-78) 03/06/24 09:06 Urine Color Yellow 03/06/24 15:27 Urine Appearance Clear 03/06/24 15:27 Urine pH 7.0 (5.0-9.0) 03/06/24 15:27 Ur Specific [place] 1.020 (1.005-1.025) 03/06/24 15:27 Urine Protein Negative mg/dL (Neg-Trace) 03/06/24 15:27 Urine Glucose (UA) Negative mg/dL (Negative) 03/06/24 15:27 Urine Ketones 40 mg/dL (Negative) 03/06/24 15:27 Urine Blood Negative (Negative) 03/06/24 15:27 Urine Nitrite Negative (Negative) 03/06/24 15:27 Ur Leukocyte Esterase Negative (Negative) 03/06/24 15:27 Influenza Type A (PCR) NEGATIVE (Negative) 03/06/24 09:06 Influenza Type B (PCR) NEGATIVE (Negative) 03/06/24 09:06 RSV RNA Qual (PCR) NEGATIVE (Negative) 03/06/24 09:06 SARS-CoV-2 RNA (RT-PCR) NEGATIVE (Negative) 03/06/24 09:06 Impressions Chest X-Ray 03/06/24 09:32 IMPRESSION: * Mild diffuse interstitial opacification might be mild interstitial pneumonitis or interstitial lung disease. * No large effusions. Head CT 03/06/24 15:19 IMPRESSION: 1. There is a heterogeneous density 3.7 cm lesion in the right cerebellopontine angle with surrounding edema resulting in mass effect on the [place] and partial effacement of fourth ventricle. 2. No acute intracranial hemorrhage or territorial infarction. Brain MRI 03/07/24 18:20 IMPRESSION: Large solid and cystic mass centered along the right cerebellopontine angle likely represents a vestibular schwannoma. Associated mass effect, as described above, with edema in the right brachium pontis and right cerebellar hemisphere. Discharge Plan Discharge Anticipated Discharge Date/Time: 03/09/24 13:28 Patient Disposition: Home Health Service Discharge Diagnosis: unresponsive episode, possibly seizure known vestibular schwannoma Referrals: Keren PIZARRO [Outside] - 1 Week Jeanie Cadet MD [Physician] - 2 Weeks Boaz David MD [Primary Care Provider] - 1 Week Discharge Medications: New levetiracetam 250 mg Tablet 250 mg PO BID Qty: 60 0RF (DME[facility] See Rx Instructions .Route Qty: 1 0RF Rx Instructions: As directed Continued methotrexate sodium 2.5 mg tablet 15 mg PO SA@1999 cholecalciferol (vitamin D3) [Vitamin D3] 125 mcg (5,000 unit) Tablet 125 mcg PO DAILY hydroxychloroquine 200 mg tablet 200 mg PO BID folic acid 1 mg tablet 1 mg PO DAILY multivitamin Tablet 1 tab PO DAILY polyethylene glycol 3350 [Miralax] 17 gram Powder In Packet 17 g PO DAILY aspirin 81 mg Tablet,Delayed Release (Dr/Ec) 81 mg PO DAILY Discharge Orders: Discharge Order (Routine); Ordered 03/09/24 Ordered By: Latrell Osman Diet: Advance to usual diet Activity on Discharge: As tolerated Stand Alone Forms: Patient Portal Discharge page Print Language: American Care Plan Goals: neurologic safety Health Concerns: unresponsive episode, possibly seizure known vestibular schwannoma Plan of Treatment: take levetiracetam [Keppra] 250 mg twice daily follow up with Dr Cadet from [facility] in 2 weeks use walker Please follow up with your primary care doctor within 1 week. Return to the hospital if you experience recurrent or worsening symptoms. Assessment: See Discharge Summary.
== END 2024-03-09 14:31 | DRG 100 ==
LOC: HO.ED 11:10 → HO.EDOVER 14:43 → HO.IMC 03-07 13:43
PROVIDERS: Admitting Provider Student in an Organized Health Care Education/Training Program; Emergency Provider Emergency Medicine; PCP Family Medicine; Visit Provider Family Medicine
DX: R56.9 Unspecified convulsions (principal); G93.6 Cerebral edema; G93.49 Other encephalopathy; G93.1 Anoxic brain damage, not elsewhere classified; M05.10 Rheumatoid lung disease with rheumatoid arthritis of unspecified site; F79 Unspecified intellectual disabilities; D33.3 Benign neoplasm of cranial nerves; E11.9 Type 2 diabetes mellitus without complications; Z20.822 Contact with and (suspected) exposure to COVID-19; Z79.82 Long term (current) use of aspirin; Z79.631 Long term (current) use of antimetabolite agent; Z79.899 Other long term (current) drug therapy
CPT/HCPCS: 0241U; 36415; 70450; 70553; 71045; 80048; 80076; 81003; 82947; 83605; 83690; 84484; 85025; 85027; 86140; 93005; 95816; 97162; 99222; 99285; A9585; J1100; J1650

== ENCOUNTER → 2024-03-06 08:41 | Outpatient (BNV) | payer MEDICARE, SELFPAY | PROVIDERS: Admitting Provider Student in an Organized Health Care Education/Training Program; Emergency Provider Emergency Medicine; PCP Family Medicine; Visit Provider Internal Medicine | DX: R41.82 Altered mental status, unspecified (principal) | CPT/HCPCS: 93010 ==

== ENCOUNTER → 2024-03-07 09:00 | Outpatient (BNV) | payer MEDICARE, MEDICAID, SELFPAY | PROVIDERS: Admitting Provider Student in an Organized Health Care Education/Training Program; Emergency Provider Emergency Medicine; PCP Family Medicine; Visit Provider Psychiatry & Neurology Neurology | DX: R55 Syncope and collapse (principal); R94.01 Abnormal electroencephalogram [EEG] | CPT/HCPCS: 99222 ==